=== PATIENT | female | born 1985 | race Caucasian/White ===

== ENCOUNTER 2018-03-27 04:57 | Inpatient (IN) | payer BC, OTHER ==
[2018-03-26 13:03] LABS: APPEARANCE,URINE SLIGHTLY-CLOUDY; BILIRUBIN,URINE NEGATIVE (NEGATIVE); COLOR,URINE YELLOW; GLUCOSE, URINE NEGATIVE (NEGATIVE); KETONES,URINE NEGATIVE (NEGATIVE); LEUKOCYTE ESTERASE,URINE NEGATIVE (NEGATIVE); NITRITE,URINE NEGATIVE (NEGATIVE); PROTEIN,URINE NEGATIVE (NEGATIVE); URINE SPECIFIC GRAVITY 1.017; UROBILINOGEN,URINE NEGATIVE mg/dL (<2.0)
[2018-03-26 13:08] LABS: URINE AMPHETAMINES SCREEN NEGATIVE; URINE BARBITURATES SCREEN NEGATIVE; URINE BENZODIAZEPINES SCREEN NEGATIVE; URINE COCAINE SCREEN NEGATIVE; URINE MARIJUANA (THC) SCREEN NEGATIVE; URINE METHADONE SCREEN NEGATIVE; URINE PHENCYCLIDINE SCREEN NEGATIVE
[2018-03-26 13:18] LABS: ABSOLUTE BASOPHILS # (AUTO) 0.1 10^3/uL (0.0-0.2); ABSOLUTE LYMPHOCYTES (AUTO) 1.5 10^3/uL (0.5-4.7); ABSOLUTE MONOCYTES (AUTO) 1.3 10^3/uL (0.1-1.4); ABSOLUTE NEUT (AUTO) 11.2 10^3/uL (1.7-8.2); BASOPHILS % (AUTO) 0.4 % (0-2); EOSINOPHILS % (AUTO) 0.3 % (0-6); HEMATOCRIT 37.5 % (36.0-47.0); HEMOGLOBIN 13.2 g/dL (12.0-15.5); LYMPHOCYTES % (AUTO) 10.6 % (13-45); MEAN CORPUSCULAR HEMOGLOBIN 30.4 pg (27.0-33.4); MEAN CORPUSCULAR HGB CONC 35.1 g/dL (32.0-36.0); MEAN CORPUSCULAR VOLUME 86 fl (80-97); MONOCYTES % (AUTO) 9.2 % (3-13); PLATELET COUNT 175 10^3/uL (150-450); RED BLOOD COUNT 4.34 10^6/uL (3.72-5.28); RED CELL DISTRIBUTION WIDTH 14.3 % (11.5-14.0); SEGMENTED NEUTROPHILS % (AUTO) 79.5 % (42-78); TOTAL CELLS COUNTED % (AUTO) 100 %; WHITE BLOOD COUNT 14.1 10^3/uL (4.0-10.5)
[2018-03-27] MEDS ORDERED: CEFAZOLIN SODIUM 2 GM in DEXTROSE 5%-WATER 100 ML IV PRN (05:00)
[2018-03-27] MEDS ORDERED: RINGERS SOLUTION,LACTATED 1,500 ML IV PRN (05:00)
[2018-03-27] MEDS ORDERED: LACTATED RINGERS 1000 ML IV PRN (05:00)
[2018-03-27] MEDS ORDERED: LIDOCAINE 0.5% INJ-PF (5 MG/ML) 50 ML SDV SUBCUT PRN (05:00)
[2018-03-27] MEDS ORDERED: CITRIC ACID/SODIUM CITRATE ORAL SOLN 15 ML UDCUP PO PRN (06:10)
[2018-03-27] MEDS ORDERED: CEFAZOLIN 1 GM/D5W RTU 2 GM/100 ML RTUPB IV ONE (06:35)
[2018-03-27] MEDS ORDERED: BUPIVACAINE HCL/DEX-WATER/PF 15 MG/2 ML AMPULE ONE (07:05)
[2018-03-27] MEDS ORDERED: ONDANSETRON HCL INJ/PF 4 MG/2 ML SDV ONE (07:07)
[2018-03-27] MEDS ORDERED: OXYTOCIN 10 UNIT/ML VIAL ONE (07:07)
[2018-03-27] MEDS ORDERED: EPHEDRINE SULFATE INJ 50 MG/1 ML AMPULE ONE (07:07)
[2018-03-27] MEDS ORDERED: FENTANYL CITRATE INJ/PF 100 MCG/2 ML AMPUL ONE (07:07)
[2018-03-27] MEDS ORDERED: MIDAZOLAM 2 MG/2 ML INJ ONE (07:07)
[2018-03-27] MEDS ORDERED: DIPHENHYDRAMINE HCL 50 MG/ML VIAL IV PRN (08:27)
[2018-03-27] MEDS ORDERED: PROMETHAZINE HCL INJ 25 MG/1 ML VIAL IV PRN ×3 (08:27→08:53)
[2018-03-27] MEDS ORDERED: OXYCODONE-ACETAMINOPHEN 5-325 MG TABLET PO PRN ×4 (08:27→08:53)
[2018-03-27] MEDS ORDERED: MEPERIDINE HCL/PF INJ 25 MG/1 ML DISP.SYRIN IV PRN (08:27)
[2018-03-27] MEDS ORDERED: MORPHINE SULFATE 10 MG/ML INJ IV PRN (08:27)
[2018-03-27] MEDS ORDERED: FENTANYL CITRATE INJ/PF 100 MCG/2 ML AMPUL IV PRN ×3 (08:27)
--- NOTE | 2018-03-27 08:51 | PDOC DELIVERY SUMMARY ---
Delivery Summary - Maternal Hx : II Hx # Term Pregnancies: 1 ROMY: 04/03/18 Gestational Age: 39 Ruptured Membranes: AROM Time of Rupture: 08:13 Fluids: Clear - Delivery Presentation: Vertex Support Person Present: Yes Location: LD : Scheduled Placenta: Within Normal Limits Delivery of Placenta Date: 03/27/18 Delivery of Placenta Time: 08:16 - Medications Type of Anesthesia:: Spinal - Infant Assess and Care Baby 1 Female Delivery of Date: 03/27/18 Delivery of Infant Time: 08:14 at 1 minute: 9 at 5 minutes: 9 Preprinted Number On Band: [id number] Infant Skin to Skin: Yes - \ Skin to Skin (Mins): 2 To Nursery At: 08:21 Mode of Transport: Bassinet Infant Delivery Weight: 3,395 Infant Delivery Length: 20 in - Delivery Personnel Gear Roller: JUJU DOMÍNGUEZ RN: BLADE DO RN: SHEILA DELUCA MD: HONG ACKERMAN
--- NOTE | 2018-03-27 08:52 | Operative Report ---
Operative Report DATE OF SURGERY: 03/27/18 PREOPERATIVE DIAGNOSIS: Patient desires repeat to prevent risk from u terine rupture POSTOPERATIVE DIAGNOSIS: Same OPERATION: Repeat via low transverse uterine incision SURGEON: HONG ACKERMAN ANESTHESIA: Spinal TISSUE REMOVED OR ALTERED: Placenta COMPLICATIONS: None ESTIMATED BLOOD LOSS: 250 cc INTRAOPERATIVE FINDINGS: Normal uterus tubes and ovaries viable female infant PROCEDURE: Patient was taken to the OR and placed in supine position after her spinal anesthesia. She is prepared and draped in sterile fashion. Wade was placed for drainage of the bladder. Low transverse incision was made and carried down the level of the fascia. The fascial incision was made with knife and extended bilaterally with curved Blackwood scissors. The fascia was off the rectus muscles using sharp and blunt dissection. The rectus muscles are in the midline. The peritoneum was entered without incident. Bladder blade was placed in uterine segment was identified. A low transverse incision was made creating a bladder flap. Bladder blade was placed low transverse uterine incision was made with the knife and extended with fingertips. The baby was delivered with some fundal pressure. Mouth and nose were suctioned free. The cord is doubly clamped and cut. Baby is passed off to the route delivery manager in attendance. The placenta was manually extracted with trailing membranes. The uterus was externalized wrapped in a moist lap sponge. Uterine contents wiped free. Uterus was closed with a running locking layer of 0 chromic suture using the second layer to imbricate the first completing a double layer closure of the uterus. The serosa was closed with a running 2-0 chromic stitch. The pelvis was irrigated and suctioned free of fluid the uterus was replaced in the abdomen. The abdominal wall peritoneum was closed with running 2-0 chromic stitch. Fascia was closed with a running 0 Vicryl in 2 segments. Krystina's layer was brought together with 0 plain gut stitch and the skin was closed with running subcuticular 4-0 undyed Vicryl stitch. The wound was dressed mother and baby did well.
[2018-03-27] MEDS ORDERED: ACETAMINOPHEN 325 MG TABLET PO PRN (08:53)
[2018-03-27] MEDS ORDERED: MEASLES,MUMPS&RUBELLA VACC/PF 0.5 ML VIAL SUBCUT PRN ×2 (08:53→12:00)
[2018-03-27] MEDS ORDERED: ACETAMINOPHEN 1,000 MG/100 ML RTUPB IV PRN (08:53)
[2018-03-27] MEDS ORDERED: RINGERS SOLUTION,LACTATED 1,000 ML IV PRN (08:53)
[2018-03-27] MEDS ORDERED: OXYTOCIN/NORMAL SALINE 20 UNIT/1,000 ML RTUINJ IV PRN (08:53)
[2018-03-27] MEDS ORDERED: SIMETHICONE 80 MG TAB.CHEW PO PRN (08:53)
[2018-03-27] MEDS ORDERED: DIPH/PERTUSS(ACELL)/TETANUS VAC/PF 0.5 ML SYR (>=10YO) IM PRN ×2 (08:53→12:00)
[2018-03-27] MEDS ORDERED: HYDROMORPHONE HCL INJ/PF 2 MG/ML AMPULE IV PRN (08:53)
[2018-03-27] MEDS ORDERED: DIPHENHYDRAMINE HCL 50 MG/ML VIAL ONE (08:56)
[2018-03-27] MEDS: DOCUSATE SODIUM 100 MG CAPSULE PO SCH ×2 (11:43→17:52)
[2018-03-27] MEDS: PRENATAL VITAMIN W DHA CAPSULE PO SCH (11:43)
[2018-03-27] MEDS: KETOROLAC TROMETHAMINE INJ/PF 30 MG/1 ML SDV IV SCH ×2 (13:58→22:46)
[2018-03-28 06:20] LABS: HEMATOCRIT 33.9 % (36.0-47.0); HEMOGLOBIN 11.7 g/dL (12.0-15.5); MEAN CORPUSCULAR HEMOGLOBIN 30.4 pg (27.0-33.4); MEAN CORPUSCULAR HGB CONC 34.5 g/dL (32.0-36.0); MEAN CORPUSCULAR VOLUME 88 fl (80-97); PLATELET COUNT 129 10^3/uL (150-450); RED BLOOD COUNT 3.84 10^6/uL (3.72-5.28); RED CELL DISTRIBUTION WIDTH 14.7 % (11.5-14.0); WHITE BLOOD COUNT 13.9 10^3/uL (4.0-10.5)
[2018-03-28] MEDS: KETOROLAC TROMETHAMINE INJ/PF 30 MG/1 ML SDV IV SCH (06:21)
--- NOTE | 2018-03-28 10:06 | PDOC PROGRESS REPORT ---
Subjective-OB Progress Note for:: 03/28/18 Subjective: Sleeping hard, hsb sleeping, nurse reports pt up alot during the night and doing well Physical Exam (OB) Vital Signs: Temp Pulse Resp BP Pulse Ox 97.9 F 92 17 119/67 98 03/28/18 07:29 03/28/18 07:29 03/28/18 07:29 03/28/18 07:29 03/28/18 07:29 Intake & Output 03/27/18 03/28/18 03/29/18 06:59 06:59 06:59 Intake Total 1218 Output Total 2250 Balance -1032 Weight 132.9 kg - PIH/Pre-Eclampsia Headache: Absent Epigastric Pain: No Visual Changes: No - Dressing Removed: No - optsite with scant dried shadow drainage Incision: Dressing - Lochia Lochia Amount: Small 10-25 ml Lochia Color: Rubra/Red - Abdomen Description: Soft, Round Hernia Present: No Fundal Description: Firm, Midline Fundal Height: u/u - u/2 Objective-Diagnostic Laboratory: 03/28/18 05:50 03/28/18 05:50 WBC 13.9 H RBC 3.84 Hgb 11.7 L Hct 33.9 L MCV 88 MCH 30.4 MCHC 34.5 RDW 14.7 H Plt Count 129 L Assessment and Plan(PN) - Assessment and Plan (1) Obesity complicating Qualifiers: Trimester: first trimester Qualified Code(s): O99.211 - Obesity complicating , first trimester Is this a current diagnosis for this admission?: Yes (2) Delivery by section of full-term infant Is this a current diagnosis for this admission?: Yes - Time Spent with Patient Time with patient: Less than 15 minutes Medications reviewed and adjusted accordingly: Yes - Disposition Anticipated Discharge: Home Within: within 24 hours
[2018-03-28] MEDS: DOCUSATE SODIUM 100 MG CAPSULE PO SCH ×2 (10:45→18:37)
[2018-03-28] MEDS: PRENATAL VITAMIN W DHA CAPSULE PO SCH (10:45)
[2018-03-28] MEDS: IBUPROFEN 800 MG TABLET PO SCH ×2 (14:22→18:37)
[2018-03-29] MEDS: IBUPROFEN 800 MG TABLET PO SCH ×4 (06:07→17:50)
[2018-03-29] MEDS: DOCUSATE SODIUM 100 MG CAPSULE PO SCH ×2 (10:14→17:51)
[2018-03-29] MEDS: PRENATAL VITAMIN W DHA CAPSULE PO SCH (10:14)
--- NOTE | 2018-03-29 11:59 | PDOC PROGRESS REPORT ---
Subjective-OB Progress Note for:: 03/29/18 Subjective: crying because baby has to stay in house tonight, states bleeding is slowing, pain controlled with current meds, has been passing gas and has had BM today. Physical Exam (OB) Vital Signs: Temp Pulse Resp BP Pulse Ox 98.2 F 94 16 117/70 98 03/29/18 07:55 03/29/18 07:55 03/29/18 07:55 03/29/18 07:55 03/29/18 07:55 Intake & Output 03/28/18 03/29/18 03/30/18 06:59 06:59 06:59 Intake Total 1218 2500 Output Total 2250 Balance -1032 2500 - Dressing Removed: No - opsite Incision: Dressing - wet with serous drainage but intact. RN requested to change dsg, Well Approximated - Abdomen Description: Tender, Soft, Round Hernia Present: No Fundal Description: Firm Fundal Height: u/u - u/2 - Extremities Lower extremities: Zia's sign - neg Calf: Normal - slight edema Objective-Diagnostic Laboratory: 03/28/18 05:50 Assessment and Plan(PN) - Assessment and Plan (1) Delivery by section of full-term infant Is this a current diagnosis for this admission?: Yes (2) Obesity complicating Qualifiers: Trimester: first trimester Qualified Code(s): O99.211 - Obesity complicating , first trimester Is this a current diagnosis for this admission?: Yes - Time Spent with Patient Time with patient: Less than 15 minutes Medications reviewed and adjusted accordingly: Yes - Disposition Anticipated Discharge: Home Within: within 24 hours
[2018-03-30] MEDS: IBUPROFEN 800 MG TABLET PO SCH ×3 (00:04→12:32)
[2018-03-30] MEDS: PRENATAL VITAMIN W DHA CAPSULE PO SCH (09:06)
[2018-03-30] MEDS: DOCUSATE SODIUM 100 MG CAPSULE PO SCH (09:06)
[2018-03-30 12:02] VITALS: BP 114/71
--- NOTE | 2018-04-03 13:27 | PDOC DISCHARGE SUMMARY ---
Final Diagnosis Discharge Date: 03/30/18 - Final Diagnosis (1) Delivery by section of full-term infant Is this a current diagnosis for this admission?: Yes (2) Obesity complicating Is this a current diagnosis for this admission?: Yes Discharge Data - Discharge Medication Prescriptions: Ibuprofen [Motrin 800 mg Tablet] 800 mg PO Q8HP PRN #60 tablet PRN Reason: Oxycodone HCl/Acetaminophen [Percocet 5-325 mg Tablet] 1 tab PO Q4HP PRN #30 tablet PRN Reason: Home Medications: Vit #60/Iron Fum/FA [Pnv Folic Acid + Iron Tablet] 1 tab PO DAILY 04/20/13 Ranitidine HCl [Zantac 150 mg Tablet] 150 mg PO PRN PRN 04/20/13 Calcium Carbonate [Tums] 2 tab.chew PO DAILY PRN 03/26/18 Docusate Sodium [Colace 100 mg Capsule] 100 mg PO BID capsule 03/30/18 Ibuprofen [Motrin 800 mg Tablet] 800 mg PO Q8HP PRN #60 tablet 03/30/18 Oxycodone HCl/Acetaminophen [Percocet 5-325 mg Tablet] 1 tab PO Q4HP PRN #30 tablet 03/30/18 Procedures: NST Intrapartum Procedure(s): : Low Cervical, Transverse - Diagnosis Test Laboratory: Temp Pulse Resp BP Pulse Ox 98.1 F 88 16 114/71 97 03/30/18 11:38 03/30/18 11:38 03/30/18 11:38 03/30/18 11:38 03/30/18 11:38 03/26/18 03/26/18 03/28/18 12:15 12:22 05:50 RBC 4.34 3.84 Hgb 13.2 11.7 L Hct 37.5 33.9 L Urine Opiates Screen NEGATIVE - Discharge information/Instructions Discharge Activity: Balance Activity w/Rest, No Lifting Over 10 Pounds, No Lifting/Push/Pulling, Pelvic Rest, No tub bath Discharge Diet: Regular Disposition: HOME, SELF-CARE Follow up with: [facility] in: 1, Weeks
== END 2018-03-30 13:01 | disposition home or self-care (01) | DRG 788 ==
LOC: 2S 04:57
PROVIDERS: ADMIT Obstetrics & Gynecology; ATTEND Obstetrics & Gynecology
PROC: 4A1HXCZ Monitoring of Products of Conception, Cardiac Rate, External Approach (ICD-10-PCS; 2018-03-27)
PROC: 10D00Z1 Extraction of Products of Conception, Low, Open Approach (ICD-10-PCS; principal; 2018-03-27 07:45)
DX: O34.211 Maternal care for low transverse scar from previous cesarean delivery (principal); O99.214 Obesity complicating childbirth; E66.9 Obesity, unspecified; Z3A.39 39 weeks gestation of pregnancy; Z37.0 Single live birth
CPT/HCPCS: 1961; 36415; 59025; 80307; 81001; 85025; 85027; 86850; 86900; 86901; 94799; J0690; J1170; J1200; J1885; J2250; J2405; J2590; J3010; J3490; J7120